=== PATIENT | female | born 1980 | race Asian ===

== ENCOUNTER 2017-02-13 14:17 | Outpatient (CLI) | payer OTHER ==
[2017-02-13 15:25] LABS: GLUCOSE,FASTING GESTATIONAL 82 mg/dL (70-110)
== END 2017-02-13 20:20 | disposition home or self-care (01) ==
LOC: MLB 14:17
PROVIDERS: ATTEND Obstetrics & Gynecology
DX: Z33.1 Pregnant state, incidental (principal)
CPT/HCPCS: 36415; 82951

== ENCOUNTER 2017-02-22 08:08 | Emergency (ER) | payer OTHER ==
[~2017-02-22] VITALS: Ht 170.2 cm; Wt 89.4 kg
[2017-02-22 08:17] VITALS: BP 123/66
--- NOTE | 2017-02-22 08:26 | NUR ---
PT AMB TO BED8
--- NOTE | 2017-02-22 08:27 | NUR ---
36 BIB C/O HEADACHE SINCE 299. PT STATES WHEN SHE LIES DOWN SHE GETS VERY DIZZY, AND VOMITED X1. PT STATES SHE IS 20 WEEKS , LMP 10/10/16, EDC 07/16/17. SKIN IS PINK/WARM/DRY; AAOX4 WITH EVEN AND STEADY GAIT; LUNGS CLEAR BL; HR EVEN AND REGULAR; PT DENIES ANY FEVER, CP, SOB, OR COUGH AT THIS TIME; PATIENT STATES PAIN OF 6/10 AT THIS TIME; VSS; PATIENT POSITIONED FOR COMFORT; HOB ELEVATED; BEDRAILS UP X2; BED DOWN. ER MD MADE AWARE OF PT STATUS.
--- NOTE | 2017-02-22 08:31 | NUR ---
Patient being evaluated by DR EMTZGER at bedside.
[2017-02-22] MEDS ORDERED: ACETAMINOPHEN EXTRA STRENGTH 500 MG TAB PO ONE (08:35)
[2017-02-22] MEDS ORDERED: METOCLOPRAMIDE 10 MG TAB PO ONE (08:35)
[2017-02-22 09:13] LABS: HEMATOCRIT 38.5 % (36-48); HEMOGLOBIN 13.3 g/dL (12.0-16.0); MEAN CORPUSCULAR HEMOGLOBIN 30 pg (27-31); MEAN CORPUSCULAR HGB CONC 35 g/dL (33-37); MEAN CORPUSCULAR VOLUME 87 fL (80-94); PLATELET COUNT (AUTO) 287 K/uL (140-450); RED BLOOD CELL COUNT(AUTO) 4.41 MIL/uL (4.20-5.40); RED CELL DISTRIBUTION WIDTH 12.9 % (11.6-13.7); WHITE BLOOD COUNT (AUTO) 15.1 K/uL (4.8-10.8)
[2017-02-22 09:38] LABS: ANION GAP 13.2 (8-16); CREATININE 0.8 mg/dL (0.6-1.3); POTASSIUM 4.2 mmol/L (3.5-5.1)
--- NOTE | 2017-02-22 09:38 | NUR ---
AT BEDSIDE. PT DENIES HEADACHE AT THIS TIME. Patient appears to be resting comfortably in bed. Vital Signs within normal limits. Respirations even and unlabored.WILL CONTINUE TO MONITOR.
[2017-02-22 09:43] LABS: ALBUMIN 3.2 g/dL (3.4-5.0); TOTAL BILIRUBIN 0.4 mg/dL (0.0-1.0)
[2017-02-22 09:46] LABS: LYMPHOCYTES % (MANUAL) 20 % (20-46); MONOCYTES % (MANUAL) 3 % (5-12)
[2017-02-22] MEDS ORDERED: MECLIZINE 25 MG TAB PO ONE (09:55)
--- NOTE | 2017-02-22 09:56 | NUR ---
Patient being reevaluated by DR METZGER at bedside.
--- NOTE | 2017-02-22 09:56 | NUR ---
PT C/O STILL DIZZY. GAVE MED ORDER.
[2017-02-22 10:04] LABS: APPEARANCE,URINE HAZY (CLEAR); BILIRUBIN,URINE NEGATIVE (NEGATIVE); BLOOD, URINE NEGATIVE (NEGATIVE); COLOR,URINE YELLOW (YELLOW); LEUKOCYTE ESTERASE ,URINE NEGATIVE (NEGATIVE); NITRITE, URINE NEGATIVE (NEGATIVE); UGLUCOSE NEGATIVE (NEGATIVE)
[2017-02-22 10:20] LABS: RBC,URINE NONE SEEN /HPF (0-5); WBC,URINE 0-2 /HPF (0-5)
--- NOTE | 2017-02-22 10:23 | NUR ---
Patient appears to be resting comfortably in bed. Vital Signs within normal limits. Respirations even and unlabored.WILL CONTINUE TO MONITOR.
[2017-02-22] MEDS ORDERED: NACL 0.9% 1,000 ML IV ONE (10:30)
--- NOTE | 2017-02-22 10:32 | NUR ---
Patient being reevaluated by DR METZGER at bedside.
--- NOTE | 2017-02-22 10:36 | NUR ---
INSERTED IV CATH 20G LEFT HAND. PT TORERATED PROCEDURE WELL. IV PATENT/INTACT.
--- NOTE | 2017-02-22 11:16 | NUR ---
Patient being REevaluated by DR METZGER at bedside.
[2017-02-22 11:44] VITALS: BP 114/68
--- NOTE | 2017-02-22 11:46 | NUR ---
Patient discharged with v/s stable. Written and verbal after care instructions given and explained. Patient alert, oriented and verbalized understanding of instructions. Ambulatory with steady gait. All questions addressed prior to discharge. ID band removed. Patient advised to follow up with PMD. Rx of MECLAZINE, REGLAN, AND TYLENOL given. Patient educated on indication of medication including possible reaction and side effects. Opportunity to ask questions provided and answered.
== END 2017-02-22 11:46 | disposition home or self-care (01) ==
LOC: MED 08:08
DX: O26.892 Other specified pregnancy related conditions, second trimester (principal); R42 Dizziness and giddiness; R51 Headache; R11.0 Nausea; Z3A.20 20 weeks gestation of pregnancy
CPT/HCPCS: 36415; 80053; 81001; 85025; 96360; 99284; J7030; J8597

== ENCOUNTER 2018-09-22 08:25 | Outpatient (CLI) | payer OTHER ==
[2018-09-22 08:52] LABS: BASOPHILS % (AUTO) 0.6 % (0.0-2.0); EOSINOPHILS # (AUTO) 0.1 K/uL (0-0.4); EOSINOPHILS % (AUTO) 0.8 % (0.0-4.0); HEMATOCRIT 44.6 % (36-48); HEMOGLOBIN 15.1 g/dL (12.0-16.0); LYMPHOCYTES # (AUTO) 2.3 K/uL (2.5-16.5); LYMPHOCYTES % (AUTO) 33.2 % (20.5-51.1); MEAN CORPUSCULAR HEMOGLOBIN 28 pg (27-31); MEAN CORPUSCULAR HGB CONC 34 g/dL (33-37); MEAN CORPUSCULAR VOLUME 83.4 fL (80-94); MONOCYTES # (AUTO) 0.4 K/uL (0.8-1.0); NEUTROPHILS % (AUTO) 59.4 % (42.2-75.2); PLATELET COUNT (AUTO) 365 K/uL (140-450); RED BLOOD CELL COUNT(AUTO) 5.35 MIL/uL (4.20-5.40); RED CELL DISTRIBUTION WIDTH 13.4 % (11.6-13.7); WHITE BLOOD COUNT (AUTO) 6.8 K/uL (4.8-10.8)
[2018-09-22 09:13] LABS: ANION GAP 13.2 (8-16); CARBON DIOXIDE 27.8 mmol/L (21-32); CHOL/HDL RATIO 3.4 (1-4.5); CREATININE 0.9 mg/dL (0.6-1.3); FREE T4 (FREE THYROXINE) 1.05 ng/dL (0.76-1.46); TOTAL BILIRUBIN 0.5 mg/dL (0.0-1.0)
[2018-09-22 09:17] LABS: APPEARANCE,URINE CLEAR (CLEAR); BILIRUBIN,URINE NEGATIVE (NEGATIVE); BLOOD, URINE NEGATIVE (NEGATIVE); COLOR,URINE YELLOW (YELLOW); LEUKOCYTE ESTERASE ,URINE TRACE (NEGATIVE); NITRITE, URINE NEGATIVE (NEGATIVE); UGLUCOSE NEGATIVE (NEGATIVE)
[2018-09-22 09:26] LABS: RBC,URINE 0-5 /HPF (0-5); WBC,URINE 0-5 /HPF (0-5)
[2018-09-23 15:06] LABS: HEPATITIS B SURFACE ANTIGEN Negative (Negative)
== END 2018-09-22 22:04 | disposition home or self-care (01) ==
LOC: MLB 08:25
DX: Z00.00 Encounter for general adult medical examination without abnormal findings (principal)
CPT/HCPCS: 36415; 80053; 81001; 82306; 84439; 85025; 86803; 87340

== ENCOUNTER 2018-11-16 08:03 | Outpatient (CLI) | payer OTHER | END 2018-11-16 20:53 | disposition home or self-care (01) | LOC: MLB 08:03 | DX: Z00.00 Encounter for general adult medical examination without abnormal findings (principal); R76.11 Nonspecific reaction to tuberculin skin test without active tuberculosis | CPT/HCPCS: 36415; 71045; 83036 ==

== ENCOUNTER 2019-04-27 10:37 | Emergency (ER) | payer OTHER ==
[~2019-04-27] VITALS: Ht 170.2 cm; Wt 95.3 kg
[2019-04-27 10:40] VITALS: BP 165/88
--- NOTE | 2019-04-27 11:25 | NUR ---
C/O VAGINAL BLEEDING X THIS AM. BLOOD NOTED ON UNDERWEAR AND WHEN WIPING BUT NONE IN TIOLET BOWL. LMP December, APPROX.15 WEEKS , HERSON OCTOBER 19 & DOES HAVE AN OBGYN. PT BROUGHT IN PADS WITH HER THAT HAVE VERY MINIMAL BROWN DISCHARGE/BLOOD. PT DENIES PAIN, N/V/D. PT PROVIDED URINE SAMPLE AND CHANGED INTO GOWN. BED IN LOW POSITION. SIDE RAIL UP X1
--- NOTE | 2019-04-27 11:30 | NUR ---
DR. SAMUELS AT BEDSIDE
[2019-04-27 13:00] LABS: BASOPHILS % (AUTO) 0.3 % (0.0-2.0); EOSINOPHILS # (AUTO) 0.1 K/uL (0-0.4); EOSINOPHILS % (AUTO) 0.8 % (0.0-4.0); HEMOGLOBIN 13.6 g/dL (12.0-16.0); LYMPHOCYTES # (AUTO) 2.3 K/uL (2.5-16.5); MEAN CORPUSCULAR HEMOGLOBIN 29 pg (27-31); MEAN CORPUSCULAR HGB CONC 33 g/dL (33-37); MEAN CORPUSCULAR VOLUME 87.4 fL (80-94); MONOCYTES # (AUTO) 0.7 K/uL (0.8-1.0); MONOCYTES % (AUTO) 5.4 % (1.7-9.3); NEUTROPHILS # (AUTO) 9.2 K/uL (1.8-7.7); NEUTROPHILS % (AUTO) 74.5 % (42.2-75.2); PLATELET COUNT (AUTO) 308 K/uL (140-450); RED BLOOD CELL COUNT(AUTO) 4.69 MIL/uL (4.20-5.40); RED CELL DISTRIBUTION WIDTH 14.1 % (11.6-13.7); WHITE BLOOD COUNT (AUTO) 12.3 K/uL (4.8-10.8)
[2019-04-27 13:16] LABS: APPEARANCE,URINE HAZY (CLEAR); BILIRUBIN,URINE NEGATIVE (NEGATIVE); BLOOD, URINE 3+ (NEGATIVE); COLOR,URINE YELLOW (YELLOW); LEUKOCYTE ESTERASE ,URINE 1+ (NEGATIVE); NITRITE, URINE NEGATIVE (NEGATIVE); PH,URINE 6.5 (5.0-9.0); UGLUCOSE NEGATIVE (NEGATIVE)
[2019-04-27 14:21] VITALS: BP 125/81
--- NOTE | 2019-04-27 14:21 | NUR ---
Patient discharged with v/s stable. Written and verbal after care instructions given and explained. Patient verbalized understanding. Ambulatory with steady gait. All questions addressed prior to discharge. Advised to follow up with PMD.
== END 2019-04-27 14:22 | disposition home or self-care (01) ==
LOC: MED 10:37
DX: O20.0 Threatened abortion (principal); Z3A.15 15 weeks gestation of pregnancy; Z91.013 Allergy to seafood
CPT/HCPCS: 36415; 76817; 81001; 84702; 85025; 87086; 99284

== ENCOUNTER 2019-05-19 08:57 | Emergency (ER) | payer OTHER ==
[~2019-05-19] VITALS: Ht 170.2 cm; Wt 96.4 kg
[2019-05-19 09:00] VITALS: BP 133/94
--- NOTE | 2019-05-19 09:04 | NUR ---
Patient ambulated to bed 11. RN evaluating patient at bedside.
--- NOTE | 2019-05-19 09:11 | NUR ---
APT C/O URGENCY, FREQUENCY, BURNING SENSATION OF URINATION, DYSURIA, SUBPRAPUBIC PAIN X 2 DAYS. PT REPORTS HAD 20 WEEKS GESTATION. A0. HERSON:10/04/19. PATIENT STATES PAIN OF 8/10 WHILE URINATING. VSS; PATIENT POSITIONED FOR COMFORT; HOB ELEVATED; BEDRAILS UP X1; BED DOWN. ER MD MADE AWARE OF PT STATUS.
[2019-05-19 09:53] LABS: APPEARANCE,URINE SL CLOUDY (CLEAR); BILIRUBIN,URINE NEGATIVE (NEGATIVE); BLOOD, URINE 3+ (NEGATIVE); COLOR,URINE YELLOW (YELLOW); LEUKOCYTE ESTERASE ,URINE 2+ (NEGATIVE); NITRITE, URINE NEGATIVE (NEGATIVE); UGLUCOSE 2+ (NEGATIVE)
[2019-05-19 10:15] LABS: RBC,URINE 50-80 /HPF (0-5); WBC,URINE 60-80 /HPF (0-5)
[2019-05-19 10:43] VITALS: BP 125/85
--- NOTE | 2019-05-19 10:43 | NUR ---
Patient discharged with v/s stable. Written and verbal after care instructions given and explained. Patient alert, oriented and verbalized understanding of instructions. Ambulatory with steady gait. All questions addressed prior to discharge. ID band removed. Patient advised to follow up with PMD. Rx of Pyridium and Macrobid given. Patient educated on indication of medication including possible reaction and side effects. Opportunity to ask questions provided and answered.
== END 2019-05-19 10:43 | disposition home or self-care (01) ==
LOC: MED 08:57
DX: O23.42 Unspecified infection of urinary tract in pregnancy, second trimester (principal); Z91.013 Allergy to seafood; Z3A.19 19 weeks gestation of pregnancy
CPT/HCPCS: 36415; 76805; 81001; 82948; 84702; 86900; 86901; 87086; 87186; 99284; Q0092

== ENCOUNTER 2019-10-11 08:45 | Inpatient (IN) | payer OTHER ==
[~2019-10-11] VITALS: Ht 172.7 cm; Wt 103.4 kg
[2019-10-11] MEDS: LACTATED RINGERS 1,000 ML IV SCH ×3 (10:10→17:30)
[2019-10-11] MEDS ORDERED: PREN-380 PO (10:24)
[2019-10-11] MEDS ORDERED: fentaNYL 0.05 MG/ML VIAL IVP PRN (10:35)
[2019-10-11] MEDS ORDERED: OXYTOCIN 20 UNITS in LACTATED RINGERS 1,000 ML IV SCH (10:35)
[2019-10-11 10:37] LABS: APPEARANCE,URINE HAZY (CLEAR); BILIRUBIN,URINE NEGATIVE (NEGATIVE); BLOOD, URINE NEGATIVE (NEGATIVE); COLOR,URINE YELLOW (YELLOW); LEUKOCYTE ESTERASE ,URINE NEGATIVE (NEGATIVE); NITRITE, URINE NEGATIVE (NEGATIVE); PH,URINE 6.5 (5.0-9.0); UGLUCOSE TRACE (NEGATIVE)
[2019-10-11 10:38] LABS: BASOPHILS % (AUTO) 0.2 % (0.0-2.0); EOSINOPHILS # (AUTO) 0.1 K/uL (0-0.4); EOSINOPHILS % (AUTO) 0.8 % (0.0-4.0); HEMATOCRIT 37.9 % (36-48); HEMOGLOBIN 12.9 g/dL (12.0-16.0); LYMPHOCYTES # (AUTO) 1.7 K/uL (2.5-16.5); LYMPHOCYTES % (AUTO) 16.7 % (20.5-51.1); MEAN CORPUSCULAR HEMOGLOBIN 31 pg (27-31); MEAN CORPUSCULAR HGB CONC 34 g/dL (33-37); MEAN CORPUSCULAR VOLUME 90.1 fL (80-94); MONOCYTES # (AUTO) 0.7 K/uL (0.8-1.0); NEUTROPHILS # (AUTO) 7.5 K/uL (1.8-7.7); NEUTROPHILS % (AUTO) 75.3 % (42.2-75.2); PLATELET COUNT (AUTO) 247 K/uL (140-450); RED BLOOD CELL COUNT(AUTO) 4.21 MIL/uL (4.20-5.40); RED CELL DISTRIBUTION WIDTH 13.8 % (11.6-13.7)
[2019-10-11] MEDS ORDERED: BUPIVACAINE 0.125%/NS PREMIX 250 ML ONE (15:55)
[2019-10-11] MEDS ORDERED: MEASLES, MUMPS, AND RUBELLA 1 VIAL SQVAC PRN (20:50)
[2019-10-11] MEDS ORDERED: OXYTOCIN 10 UNITS/ML VIAL IM PRN (20:50)
[2019-10-11] MEDS ORDERED: HYDROcodone/APAP 5/325 MG 1 TAB TAB PO PRN (20:50)
[2019-10-11] MEDS ORDERED: METHYLERGONOVINE 0.2 MG/ML AMP IM PRN (20:50)
[2019-10-11] MEDS ORDERED: TEMAZEPAM 15 MG CAP PO PRN (20:50)
[2019-10-11] MEDS ORDERED: BENZOCAINE/MENTHOL 20%-0.5% 60 GM CAN TP PRN (20:50)
[2019-10-11] MEDS ORDERED: oxyCODONE/APAP 5/325 MG 1 TAB TAB PO PRN (20:50)
[2019-10-11] MEDS ORDERED: DOCUSATE SOD/SENNA 50/8.6 MG 1 TAB PO SCH (21:00)
[2019-10-12] MEDS: IBUPROFEN 800 MG TAB PO PRN ×3 (01:15→18:45)
[2019-10-12 06:02] LABS: HEMATOCRIT 34.2 % (36-48); HEMOGLOBIN 11.5 g/dL (12.0-16.0)
[2019-10-12 06:07] LABS: HEPATITIS B SURFACE ANTIGEN Negative (Negative)
--- NOTE | 2019-10-13 06:22 | NUR ---
PATIENT HAS BEEN SCREENED AND CATEGORIZED LOW NUTRITION RISK. PATIENT WILL BE SEEN WITHIN 7 DAYS OF ADMISSION. 10/18/19 NIDIA PHILIP MS, RDN
== END 2019-10-13 12:05 | disposition home or self-care (01) | DRG 806 ==
LOC: MLD 08:45 → EEVIPCON 08:45 → MFCC 23:07
PROVIDERS: ADMIT Obstetrics & Gynecology; ATTEND Obstetrics & Gynecology
PROC: 10E0XZZ Delivery of Products of Conception, External Approach (ICD-10-PCS; principal; 2019-10-11)
PROC: 0KQM0ZZ Repair Perineum Muscle, Open Approach (ICD-10-PCS; 2019-10-11)
PROC: 10907ZC Drainage of Amniotic Fluid, Therapeutic from Products of Conception, Via Natural or Artificial Opening (ICD-10-PCS; 2019-10-11)
PROC: 3E033VJ Introduction of Other Hormone into Peripheral Vein, Percutaneous Approach (ICD-10-PCS; 2019-10-11)
PROC: 3E0R3BZ Introduction of Anesthetic Agent into Spinal Canal, Percutaneous Approach (ICD-10-PCS; 2019-10-11)
PROC: 00HU33Z Insertion of Infusion Device into Spinal Canal, Percutaneous Approach (ICD-10-PCS; 2019-10-11)
DX: O70.1 Second degree perineal laceration during delivery (principal); D62 Acute posthemorrhagic anemia; Z37.0 Single live birth; Z3A.39 39 weeks gestation of pregnancy
CPT/HCPCS: 36415; 51702; 59409; 81003; 85018; 85025; 86592; 86762; 86886; 86900; 86901; 87340; J2590; J3010; J3490; J7120

== ENCOUNTER 2020-05-22 08:10 | Outpatient (CLI) | payer OTHER ==
[~2020-05-22 08:10] MED LIST: PREN-380 PO
[2020-05-22 09:15] LABS: BASOPHILS # (AUTO) 0.1 K/uL (0.00-0.22); BASOPHILS % (AUTO) 0.8 % (0.0-2.0); EOSINOPHILS # (AUTO) 0.1 K/uL (0-0.4); EOSINOPHILS % (AUTO) 1.5 % (0.0-4.0); HEMATOCRIT 42.5 % (36-48); HEMOGLOBIN 14.4 g/dL (12.0-16.0); LYMPHOCYTES # (AUTO) 2.3 K/uL (2.5-16.5); LYMPHOCYTES % (AUTO) 32.8 % (20.5-51.1); MEAN CORPUSCULAR HEMOGLOBIN 29 pg (27-31); MEAN CORPUSCULAR HGB CONC 34 g/dL (33-37); MEAN CORPUSCULAR VOLUME 85.1 fL (80-94); MONOCYTES # (AUTO) 0.3 K/uL (0.8-1.0); NEUTROPHILS # (AUTO) 4.1 K/uL (1.8-7.7); NEUTROPHILS % (AUTO) 59.9 % (42.2-75.2); PLATELET COUNT (AUTO) 312 K/uL (140-450); RED BLOOD CELL COUNT(AUTO) 4.99 MIL/uL (4.20-5.40); RED CELL DISTRIBUTION WIDTH 13.2 % (11.6-13.7); WHITE BLOOD COUNT (AUTO) 6.9 K/uL (4.8-10.8)
[2020-05-22 09:20] LABS: APPEARANCE,URINE CLEAR (CLEAR); BILIRUBIN,URINE NEGATIVE (NEGATIVE); BLOOD, URINE NEGATIVE (NEGATIVE); COLOR,URINE YELLOW (YELLOW); LEUKOCYTE ESTERASE ,URINE TRACE (NEGATIVE); NITRITE, URINE NEGATIVE (NEGATIVE); UGLUCOSE NEGATIVE (NEGATIVE)
[2020-05-22 09:29] LABS: RBC,URINE 0-5 /HPF (0-5); WBC,URINE 0-5 /HPF (0-5)
[2020-05-23 09:56] LABS: T4 (THYROXINE) 8.2 ug/dL (4.5 - 12.0)
[2020-05-23 23:56] LABS: ALBUMIN 4.5 g/dL (3.4-5.0); ANION GAP 15.9 (8-16); CARBON DIOXIDE 27.6 mmol/L (21-32); CHOL/HDL RATIO 3.5 (1-4.5); CREATININE 0.9 mg/dL (0.6-1.3); POTASSIUM 4.5 mmol/L (3.5-5.1); THYROID STIMULATING HORMONE 2.77 uIU/mL (0.34-3.74); TOTAL BILIRUBIN 0.5 mg/dL (0.0-1.0)
[2020-05-26 23:03] LABS: ANTI-NUCLEAR ANTIBODY,DIRECT Negative (Negative)
== END 2020-05-22 20:41 | disposition home or self-care (01) ==
LOC: MLB 08:10
DX: M12.9 Arthropathy, unspecified (principal); Z00.00 Encounter for general adult medical examination without abnormal findings
CPT/HCPCS: 36415; 71046; 73630; 80053; 81001; 83036; 84436; 84443; 84550; 85025; 85651; 86038; 86430

== ENCOUNTER 2020-11-21 09:09 | Outpatient (CLI) | payer OTHER ==
[2020-11-21 10:02] LABS: BASOPHILS # (AUTO) 0.1 K/uL (0.00-0.22); BASOPHILS % (AUTO) 0.8 % (0.0-2.0); EOSINOPHILS # (AUTO) 0.2 K/uL (0-0.4); EOSINOPHILS % (AUTO) 2.5 % (0.0-4.0); HEMATOCRIT 42.3 % (36-48); HEMOGLOBIN 14.2 g/dL (12.0-16.0); LYMPHOCYTES # (AUTO) 2.6 K/uL (2.5-16.5); LYMPHOCYTES % (AUTO) 29.5 % (20.5-51.1); MEAN CORPUSCULAR HEMOGLOBIN 28 pg (27-31); MEAN CORPUSCULAR HGB CONC 34 g/dL (33-37); MEAN CORPUSCULAR VOLUME 84.3 fL (80-94); MONOCYTES # (AUTO) 0.6 K/uL (0.8-1.0); MONOCYTES % (AUTO) 6.4 % (1.7-9.3); NEUTROPHILS # (AUTO) 5.4 K/uL (1.8-7.7); NEUTROPHILS % (AUTO) 60.8 % (42.2-75.2); PLATELET COUNT (AUTO) 341 K/uL (140-450); RED BLOOD CELL COUNT(AUTO) 5.02 MIL/uL (4.20-5.40); RED CELL DISTRIBUTION WIDTH 13.4 % (11.6-13.7); WHITE BLOOD COUNT (AUTO) 8.8 K/uL (4.8-10.8)
[2020-11-21 10:11] LABS: APPEARANCE,URINE CLEAR (CLEAR); BILIRUBIN,URINE NEGATIVE (NEGATIVE); BLOOD, URINE NEGATIVE (NEGATIVE); COLOR,URINE YELLOW (YELLOW); LEUKOCYTE ESTERASE ,URINE NEGATIVE (NEGATIVE); NITRITE, URINE NEGATIVE (NEGATIVE); PH,URINE 5.5 (5.0-9.0); UGLUCOSE NEGATIVE (NEGATIVE)
[2020-11-21 10:12] LABS: ALBUMIN 3.8 g/dL (3.4-5.0); CARBON DIOXIDE 27.2 mmol/L (21-32); CHOL/HDL RATIO 3.7 (1-4.5); CREATININE 0.9 mg/dL (0.6-1.3); POTASSIUM 4.2 mmol/L (3.5-5.1); THYROID STIMULATING HORMONE 3.08 uIU/mL (0.34-3.74); TOTAL BILIRUBIN 0.4 mg/dL (0.0-1.0)
[2020-11-22 07:06] LABS: T4 FREE (DIRECT) 1.24 ng/dL (0.82-1.77)
== END 2020-11-21 19:14 | disposition home or self-care (01) ==
LOC: MLB 09:09
DX: R73.03 Prediabetes (principal); R77.0 Abnormality of albumin; N18.2 Chronic kidney disease, stage 2 (mild); Z00.00 Encounter for general adult medical examination without abnormal findings
CPT/HCPCS: 36415; 80053; 81003; 83036; 84439; 84443; 85025

== ENCOUNTER 2021-01-17 09:56 | Outpatient (CLI) | payer OTHER ==
[2021-01-22 11:16] LABS: ANTI-CHROMATIN ANTIBODIES <0.2 AI (0.0 - 0.9)
[2021-01-22 11:17] LABS: ANTI DOUBLE STRANDED DNA AB <0.2 IU/mL (0 - 9); ANTI-SMITH AB <0.2 AI (0.0 - 0.9)
== END 2021-01-17 21:36 | disposition home or self-care (01) ==
LOC: MLB 09:56
DX: E04.1 Nontoxic single thyroid nodule (principal)
CPT/HCPCS: 36415; 76536; 86038

== ENCOUNTER 2021-01-20 10:11 | Emergency (ER) | payer OTHER, SELFPAY ==
[~2021-01-20] VITALS: Ht 170.2 cm; Wt 81.6 kg
[2021-01-20 10:24] VITALS: BP 172/87
[2021-01-20] MEDS ORDERED: BENZ-196 PO (13:05)
[2021-01-20 13:15] VITALS: BP 172/87
== END 2021-01-20 13:21 | disposition home or self-care (01) ==
LOC: MED 10:11
DX: J06.9 Acute upper respiratory infection, unspecified (principal); Z20.822 Contact with and (suspected) exposure to COVID-19; R05 Cough; Z79.899 Other long term (current) drug therapy; Z91.013 Allergy to seafood
CPT/HCPCS: 87426; 99283; U0003

== ENCOUNTER 2021-02-27 09:01 | Outpatient (CLI) | payer OTHER, SELFPAY ==
[~2021-02-27 09:01] MED LIST changes: +BENZ-196 PO
[2021-02-27 11:03] LABS: BASOPHILS % (AUTO) 0.4 % (0.0-2.0); EOSINOPHILS % (AUTO) 0.1 % (0.0-4.0); HEMATOCRIT 45.2 % (36-48); HEMOGLOBIN 15.2 g/dL (12.0-16.0); LYMPHOCYTES # (AUTO) 1.9 K/uL (2.5-16.5); LYMPHOCYTES % (AUTO) 25.9 % (20.5-51.1); MEAN CORPUSCULAR HEMOGLOBIN 28 pg (27-31); MEAN CORPUSCULAR HGB CONC 34 g/dL (33-37); MEAN CORPUSCULAR VOLUME 84.3 fL (80-94); MONOCYTES # (AUTO) 0.6 K/uL (0.8-1.0); MONOCYTES % (AUTO) 8.3 % (1.7-9.3); NEUTROPHILS # (AUTO) 4.8 K/uL (1.8-7.7); NEUTROPHILS % (AUTO) 65.3 % (42.2-75.2); PLATELET COUNT (AUTO) 293 K/uL (140-450); RED BLOOD CELL COUNT(AUTO) 5.37 MIL/uL (4.20-5.40); RED CELL DISTRIBUTION WIDTH 13.3 % (11.6-13.7); WHITE BLOOD COUNT (AUTO) 7.4 K/uL (4.8-10.8)
[2021-02-27 11:09] LABS: ANION GAP 10.4 (8-16); CARBON DIOXIDE 27.7 mmol/L (21-32); CREATININE 0.9 mg/dL (0.6-1.3); POTASSIUM 4.1 mmol/L (3.5-5.1); TOTAL BILIRUBIN 0.4 mg/dL (0.0-1.0)
== END 2021-02-27 23:00 | disposition home or self-care (01) ==
LOC: MLB 09:01 → EEVIPCON 09:01 → MLB 23:00
PROVIDERS: ATTEND Internal Medicine
DX: R05 Cough (principal); Z20.822 Contact with and (suspected) exposure to COVID-19
CPT/HCPCS: 36415; 71046; 80053; 85025

== ENCOUNTER 2021-04-18 09:29 | Emergency (ER) | payer OTHER, SELFPAY ==
[~2021-04-18] VITALS: Ht 172.7 cm; Wt 98.9 kg
[2021-04-18 09:38] VITALS: BP 143/97
[2021-04-18] MEDS ORDERED: ROB PO (09:51)
--- NOTE | 2021-04-18 09:56 | NUR ---
DR SWEENEY EVALUATING PT IN THE TENT
--- NOTE | 2021-04-18 10:08 | NUR ---
40 Y/O FEMALE C/O COVID-19 SYMPTOMS. PT TOOK AN AT HOME COVID TEST AND TESTED POSITIVE LAST NIGHT BUT DOESNT TRUST IT. PT IS FULLY VACCINATED. PT C/O COUGH, HEADACHE, SUBJECTIVE FEVER, LOSS OF TASTE AND SMELL, AND FATIGUE. PT REPORTED 5/10 HEADACHE. PT REPORTS TAKING 600 MG IBUPROFEN WHICH PROVIDED RELIEF. PT DENIES CHEST PAIN/SOB. PT A/O X4 WITH EVEN AN DUNLABORED RESPIRATIONS. NO SIGNS OF DISTRESS. PMH:ASTHMA ALLERGIES:SHRIMP
--- NOTE | 2021-04-18 10:09 | NUR ---
COVID NOVEL AND INFLUENZA SAMPLES COLLECTED AND WALKED TO LAB
--- NOTE | 2021-04-18 10:10 | NUR ---
Patient discharged with v/s stable. Written and verbal after care instructions ABOUT COVID 19 given and explained. Patient alert, oriented and verbalized understanding of instructions. Ambulatory with steady gait. All questions addressed prior to discharge. ID band removed. Patient advised to follow up with PMD. Rx of ROBITUSSIN given. Patient educated on indication of medication including possible reaction and side effects. Opportunity to ask questions provided and answered.
== END 2021-04-18 10:10 | disposition home or self-care (01) ==
LOC: MED 09:29
DX: U07.1 COVID-19 (principal); R05.9 Cough, unspecified; R53.83 Other fatigue; R53.81 Other malaise; Z91.013 Allergy to seafood; Z79.899 Other long term (current) drug therapy
CPT/HCPCS: 87804; 99283; U0003

== ENCOUNTER 2021-12-18 09:33 | Outpatient (CLI) | payer OTHER ==
[~2021-12-18 09:33] MED LIST changes: +ROB PO
[2021-12-18 10:51] LABS: BASOPHILS # (AUTO) 0.1 K/uL (0.00-0.22); BASOPHILS % (AUTO) 0.8 % (0.0-2.0); EOSINOPHILS # (AUTO) 0.2 K/uL (0-0.4); EOSINOPHILS % (AUTO) 1.9 % (0.0-4.0); HEMATOCRIT 40.8 % (36-48); HEMOGLOBIN 13.8 g/dL (12.0-16.0); LYMPHOCYTES # (AUTO) 2.5 K/uL (2.5-16.5); LYMPHOCYTES % (AUTO) 30.2 % (20.5-51.1); MEAN CORPUSCULAR HEMOGLOBIN 28 pg (27-31); MEAN CORPUSCULAR HGB CONC 34 g/dL (33-37); MEAN CORPUSCULAR VOLUME 83.3 fL (80-94); MONOCYTES # (AUTO) 0.3 K/uL (0.8-1.0); MONOCYTES % (AUTO) 3.3 % (1.7-9.3); NEUTROPHILS # (AUTO) 5.3 K/uL (1.8-7.7); NEUTROPHILS % (AUTO) 63.8 % (42.2-75.2); PLATELET COUNT (AUTO) 419 K/uL (140-450); RED CELL DISTRIBUTION WIDTH 13.3 % (11.6-13.7); WHITE BLOOD COUNT (AUTO) 8.3 K/uL (4.8-10.8)
[2021-12-18 11:08] LABS: APPEARANCE,URINE CLEAR (CLEAR); BILIRUBIN,URINE NEGATIVE (NEGATIVE); BLOOD, URINE NEGATIVE (NEGATIVE); COLOR,URINE YELLOW (YELLOW); LEUKOCYTE ESTERASE ,URINE NEGATIVE (NEGATIVE); NITRITE, URINE NEGATIVE (NEGATIVE); PH,URINE 6.5 (5.0-9.0); UGLUCOSE NEGATIVE (NEGATIVE)
[2021-12-18 11:25] LABS: ALBUMIN 3.8 g/dL (3.4-5.0); ANION GAP 10.2 (8-16); CARBON DIOXIDE 28.6 mmol/L (21-32); CHOL/HDL RATIO 3.9 (1-4.5); CREATININE 0.8 mg/dL (0.6-1.3); POTASSIUM 3.8 mmol/L (3.5-5.1); THYROID STIMULATING HORMONE 2.88 uIU/mL (0.34-3.74); TOTAL BILIRUBIN 0.6 mg/dL (0.0-1.0)
[2021-12-19 09:06] LABS: TRIIODOTHYRONINE 138 ng/dL (71-180)
== END 2021-12-18 20:03 | disposition home or self-care (01) ==
LOC: MLB 09:33
PROVIDERS: ATTEND Internal Medicine
DX: Z00.00 Encounter for general adult medical examination without abnormal findings (principal); E04.2 Nontoxic multinodular goiter; N18.2 Chronic kidney disease, stage 2 (mild); R73.09 Other abnormal glucose; J45.909 Unspecified asthma, uncomplicated; E66.9 Obesity, unspecified; E04.9 Nontoxic goiter, unspecified
CPT/HCPCS: 36415; 76536; 80053; 80061; 81003; 82306; 83036; 84439; 84443; 84480; 85025; 85651; 86800; 87086; Q0092

== ENCOUNTER 2022-11-26 08:51 | Outpatient (CLI) | payer OTHER ==
[2022-11-26 09:43] LABS: APPEARANCE,URINE CLEAR (CLEAR); BILIRUBIN,URINE NEGATIVE (NEGATIVE); BLOOD, URINE NEGATIVE (NEGATIVE); COLOR,URINE YELLOW (YELLOW); LEUKOCYTE ESTERASE ,URINE NEGATIVE (NEGATIVE); NITRITE, URINE NEGATIVE (NEGATIVE); UGLUCOSE NEGATIVE (NEGATIVE)
[2022-11-26 09:50] LABS: ALBUMIN 3.7 g/dL (3.4-5.0); ANION GAP 12.2 (8-16); CARBON DIOXIDE 26.8 mmol/L (21-32); CHOL/HDL RATIO 3.2 (1-4.5); CREATININE 0.9 mg/dL (0.6-1.3); FREE T4 (FREE THYROXINE) 1.09 ng/dL (0.76-1.46); TOTAL BILIRUBIN 0.6 mg/dL (0.0-1.0)
[2022-11-28 09:06] LABS: ESTRADIOL SERUM 56.3 pg/mL (.); LUTEINIZING HORMONE 4.2 mIU/mL (.); PROLACTIN 19.7 ng/mL (4.8-23.3); TRIIODOTHYRONINE 123 ng/dL (71-180)
== END 2022-11-26 21:34 | disposition home or self-care (01) ==
LOC: MLB 08:51
PROVIDERS: ATTEND Internal Medicine
DX: Z00.00 Encounter for general adult medical examination without abnormal findings (principal); E66.9 Obesity, unspecified; K21.00 Gastro-esophageal reflux disease with esophagitis, without bleeding; E04.9 Nontoxic goiter, unspecified; R73.09 Other abnormal glucose
CPT/HCPCS: 36415; 80053; 81003; 82670; 83001; 83002; 83036; 84146; 84439; 84480

== ENCOUNTER 2022-12-08 14:46 | Outpatient (CLI) | payer OTHER ==
[2022-12-09 09:06] LABS: VARICELLA IGG ANTIBODY 1308 index (Immune >165)
== END 2022-12-08 20:54 | disposition home or self-care (01) ==
LOC: MDS 14:46
PROVIDERS: ATTEND Internal Medicine
DX: Z01.84 Encounter for antibody response examination (principal)
CPT/HCPCS: 36415; 86706; 86762; 86765; 86787

== ENCOUNTER 2022-12-18 15:20 | Outpatient (CLI) | payer OTHER ==
[2022-12-18 16:03] LABS: BASOPHILS # (AUTO) 0.1 K/uL (0.00-0.22); BASOPHILS % (AUTO) 0.9 % (0.0-2.0); EOSINOPHILS # (AUTO) 0.4 K/uL (0-0.4); EOSINOPHILS % (AUTO) 4.6 % (0.0-4.0); HEMOGLOBIN 13.3 g/dL (12.0-16.0); LYMPHOCYTES # (AUTO) 2.2 K/uL (2.5-16.5); LYMPHOCYTES % (AUTO) 27.5 % (20.5-51.1); MEAN CORPUSCULAR HEMOGLOBIN 29 pg (27-31); MEAN CORPUSCULAR HGB CONC 34 g/dL (33-37); MEAN CORPUSCULAR VOLUME 83.2 fL (80-94); MONOCYTES # (AUTO) 0.5 K/uL (0.8-1.0); MONOCYTES % (AUTO) 5.6 % (1.7-9.3); NEUTROPHILS % (AUTO) 61.4 % (42.2-75.2); PLATELET COUNT (AUTO) 342 K/uL (140-450); RED BLOOD CELL COUNT(AUTO) 4.68 MIL/uL (4.20-5.40); RED CELL DISTRIBUTION WIDTH 13.1 % (11.6-13.7); WHITE BLOOD COUNT (AUTO) 8.2 K/uL (4.8-10.8)
[2022-12-20 21:54] LABS: ANTI-NUCLEAR ANTIBODY,DIRECT Negative (Negative)
== END 2022-12-18 16:51 | disposition home or self-care (01) ==
LOC: MLB 15:20
PROVIDERS: ATTEND Internal Medicine
DX: M79.671 Pain in right foot (principal); M79.672 Pain in left foot
CPT/HCPCS: 36415; 73630; 83520; 84550; 85025; 85651; 86038; 86430